=== PATIENT | female | born 1980 | race Caucasian/White ===

== ENCOUNTER 2017-01-27 08:18 | Emergency (ER) | payer BC ==
[~2017-01-27] VITALS: Ht 157.5 cm; Wt 69.5 kg
[2017-01-27 08:21] VITALS: Ht 157.5 cm; Wt 69.5 kg
[2017-01-27] MEDS ORDERED: TETRACAINE 0.5% 4 ML OPH RIGHT EYE ONE (09:00)
[2017-01-27] MEDS ORDERED: FLUORESCEIN STRIP RIGHT EYE ONE (09:00)
[2017-01-27] MEDS ORDERED: OFLO5DRO46 RIGHT EYE (09:24)
--- NOTE | 2017-01-27 09:34 | ERD ---
ER Documentation Chief Complaint Date/Time DATE: 01/27/17 TIME: 09:27 Chief Complaint Coomplains of right eye pain since yesterday HPI 36-year-old female complaining of right eye pain and irritation 2 days. Patient stated that she is a is a context where contact lens wear. She was on vacation, and slept in her daily wear contact lenses for several days. She noticed a pain and irritation yesterday morning, and took the contact lens out at that time. Since then she has been feeling teary eye, redness, light sensitivity and painful, foreign body sensation on the right. She had discharge from the right eye this morning. Denies blurry vision. Denies foreign body or any other eye injury. ROS All systems reviewed and are negative except as per history of present illness. Medications Home Meds Active Scripts Ofloxacin* (Ocuflox*) 0.3%-5 Ml Ophth Drops, 1 DROP RIGHT EYE QID for 7 Days, BOTTLE Prov:LANACAT Rhiannon STRUCTURES TECHNICIAN 01/27/17 Allergies Allergies: Coded Allergies: No Known Allergy (Unverified , 01/27/17) PMhx/Soc Medical and Surgical Hx: pt denies Medical Hx Physical Exam Vitals Vital Signs Date Time Temp Pulse Resp B/P Pulse Ox O2 Delivery O2 Flow Rate FiO2 01/27/17 08:21 98.6 60 20 125/50 98 Physical Exam General: Well-developed, well-nourished, conscious and coherent, in no distress Skin: Warm and dry without rash, good texture and turgor Head: Normocephalic without evidence of trauma Eyes: Right conjunctiva injected, no purulent discharge. Pupils equal, round , and reactive to light; extraocular movements are intact Mouth/throat: Mucous membranes are moist. Posterior pharynx clear without erythema or exudates Neck: Supple without meningismus or adenopathy. Carotids are equal. Trachea midline. No bruits or JVD Chest: Normal AP diameter. Good expansion without retractions. Nontender. Lungs are clear to auscultate bilaterally with good tidal volume Heart: Regular rate and rhythm. No murmur, rub, or gallops heard Extremities: Full range of motion. Good strength bilaterally. No clubbing, cyanosis, or edema. Peripheral pulses are intact. Sensation intact Neuro: Alert and oriented 4, GCS 15. Cranial nerves grossly intact. Motor and sensory exams nonfocal. Moves all extremities. Speech clear. Gait normal Results 24 hrs Current Medications Medications (Trade) Dose Ordered Sig/Vel Route PRN Reason Start Time Stop Time Status Last Admin Dose Admin Tetracaine HCl (Tetracaine 0.5% Steri-Unit Selina) 1 drop ONCE ONCE RIGHT EYE 01/27/17 09:00 01/27/17 09:01 DC Fluorescein Sodium (Lbcxp-W-Murxw) 1 strip ONCE ONCE RIGHT EYE 01/27/17 09:00 01/27/17 09:01 DC Procedures/MDM Well-appearing 36-year-old female presented ED with right eye pain and redness after improper contact lens uses. Tetracaine ophthalmic solution was instilled into patient's right eye. Fluoresceins dye was then applied. Patient was examined under Wood's lamp. No dye uptake was noted. Patient does not have any corneal abrasion or corneal ulcer. However, since patient conjunctivitis secondary to contact lens use, I will prescribe her ofloxacin ophthalmic drops. Patient is advised to follow-up with her iron setter if her symptoms does not improve or worsens. Patient appears well, stable for discharge and outpatient management. Medical decision making shared with patient and family. Education provided to patient and family. Patient and family expressed understanding of the plan. Medications on discharge: Ofloxacin ophthalmic. Follow-up: Primary care provider in 2-3 days or return to ED if worse. Disclaimer: Inadvertent spelling and grammatical errors are likely due to EHR/ dictation software use and do not reflect on the overall quality of patient care. Also, please note that the electronic time recorded on this note does not necessarily reflect the actual time of the patient encounter. Departure Diagnosis: Primary Impression: Conjunctivitis Conjunctivitis type: acute Acute conjunctivitis type: bacterial Laterality : right Qualified Code: H10.31 - Acute bacterial conjunctivitis of right eye Condition: Stable Patient Instructions: Conjunctivitis Caused by Infection Referrals: COMMUNITY CLINICS YOU HAVE RECEIVED A MEDICAL SCREENING EXAM AND THE RESULTS INDICATE THAT YOU DO NOT HAVE A CONDITION THAT REQUIRES URGENT TREATMENT IN THE EMERGENCY DEPARTMENT. FURTHER EVALUATION AND TREATMENT OF YOUR CONDITION CAN WAIT UNTIL YOU ARE SEEN IN YOUR DOCTORS OFFICE WITHIN THE NEXT 1-2 DAYS. IT IS YOUR RESPONSIBILITY TO MAKE AN APPOINTMENT FOR FOLOW-UP CARE. IF YOU HAVE A PRIMARY DOCTOR --you should call your primary doctor and schedule an appointment IF YOU DO NOT HAVE A PRIMARY DOCTOR YOU CAN CALL OUR PHYSICIAN REFERRAL HOTLINE AT IF YOU CAN NOT AFFORD TO SEE A PHYSICIAN YOU CAN CHOSE FROM THE FOLLOWING FORMERLY [facility] [address] [facility] [address] [facility]. [facility] [address] [facility] [address] [facility] [facility] [address] [facility]. [facility] [address] [facility] [place] Hours: Mon - Fri 9:00 AM - 5:00 PM Additional Instructions: Follow up with an iron setter if you're not getting better. CAT SCHWARTZ NP Jan 27, 2017 09:34
== END 2017-01-27 09:48 | disposition home or self-care (01) ==
LOC: FTE 08:18
DX: H10.31 Unspecified acute conjunctivitis, right eye (principal)
CPT/HCPCS: 99283